=== PATIENT | female | born 1975 | race Caucasian/White ===

== ENCOUNTER → 2018-06-17 | Outpatient (CLI) | payer OTHER | LOC: LAB.R 19:21 | PROVIDERS: ATTEND Nurse Practitioner Obstetrics & Gynecology | DX: N89.8 Other specified noninflammatory disorders of vagina (principal); Z11.3 Encounter for screening for infections with a predominantly sexual mode of transmission | CPT/HCPCS: 87480; 87491; 87510; 87591; 87660 ==

== ENCOUNTER 2018-06-19 19:21 | Outpatient (CLI) | payer OTHER ==
[2018-06-23 13:51] LABS: HSV 1 IGG TYPE SPECIFIC AB 51.1 index; HSV 2 IGG TYPE SPECIFIC AB 2.26 index
== END 2018-06-19 19:22 | disposition home or self-care (01) ==
LOC: LAB.R 19:21
PROVIDERS: ATTEND Nurse Practitioner Obstetrics & Gynecology
DX: Z11.3 Encounter for screening for infections with a predominantly sexual mode of transmission (principal)
CPT/HCPCS: 36415; 81599; 86695; 86696; 87480; 87491; 87510; 87591; 87660

== ENCOUNTER 2018-12-25 13:09 | Outpatient (CLI) | payer BC ==
--- NOTE | 2018-12-25 15:58 | Ultrasound Report ---
Reason: MENORRHAGIA Procedure Date: 12/25/2018 Accession Number: [id number] / [id number] Procedure: US - Pelvic w/Transvaginal CPT Code: FULL RESULT: EXAM: PELVIC ULTRASOUND EXAM DATE: 12/25/2018 02:31 PM. CLINICAL HISTORY: MENORRHAGIA. COMPARISON: None. TECHNIQUE: Realtime transabdominal pelvic scan performed to identify the uterus and adnexa and as an overview of other pelvic structures, followed by transvaginal scan to provide greater detail of the uterus and adnexa, with static image documentation. FINDINGS: Uterus: 11.2 x 4.6 x 7.1 cm, volume 191 cc. Retroverted position. Normal overall size and echotexture. Masses: None. Endometrium: 11 mm. Normal. Cervix: Unremarkable. Right Ovary: 2.6 x 1.6 x 2.4 cm, volume 5.1 cc. Normal echotexture and blood flow. Left Ovary: 3.7 x 1.9 x 3.2 cm, volume 11.3 cc. Normal echotexture and blood flow. Free Fluid: None. Other: None. IMPRESSION: Normal pelvic ultrasound. RADIA
== END 2018-12-25 13:10 | disposition home or self-care (01) ==
LOC: DI 13:09
PROVIDERS: ATTEND Obstetrics & Gynecology
DX: N92.0 Excessive and frequent menstruation with regular cycle (principal)
CPT/HCPCS: 76830; 76856

== ENCOUNTER 2020-09-07 13:26 | Outpatient (CLI) | payer BC | END 2020-09-07 13:27 | disposition home or self-care (01) | LOC: LAB 13:26 | PROVIDERS: ATTEND Obstetrics & Gynecology | DX: Z53.9 Procedure and treatment not carried out, unspecified reason (principal) ==

== ENCOUNTER 2020-09-08 16:17 | Outpatient (CLI) | payer BC | END 2020-09-08 16:18 | disposition home or self-care (01) | LOC: LAB 16:17 | PROVIDERS: ATTEND Obstetrics & Gynecology | DX: Z01.812 Encounter for preprocedural laboratory examination (principal); N81.6 Rectocele; N81.10 Cystocele, unspecified; Z97.5 Presence of (intrauterine) contraceptive device; Z20.828 Contact with and (suspected) exposure to other viral communicable diseases ==

== ENCOUNTER 2020-09-11 15:42 | Outpatient (CLI) | payer BC ==
[2020-09-11 16:15] LABS: BASOPHILS % (AUTO) 0.4 %; EOSINOPHILS # (AUTO) 0.1 10^3/uL (0.0-0.7); EOSINOPHILS % (AUTO) 1.7 %; HGB - HEMOGLOBIN 12.7 g/dL (12.0-16.0); LYMPHOCYTES # (AUTO) 2.2 10^3/uL (1.5-3.5); LYMPHOCYTES % (AUTO) 31.4 %; MEAN CORPUSCULAR VOLUME 88.2 fL (81.0-99.0); MEAN PLATELET VOLUME 10.6 fL (7.9-10.8); MONOCYTES # (AUTO) 0.4 10^3/uL (0.0-1.0); MONOCYTES % (AUTO) 5.5 %; NEUTROPHILS # (AUTO) 4.3 10^3/uL (1.5-6.6); NEUTROPHILS % (AUTO) 60.7 %; PLT - PLATELET COUNT 175 10^3/uL (130-450); RED BLOOD COUNT 4.24 10^6/uL (4.20-5.40); RED CELL DISTRIBUTION WIDTH 12.7 % (12.0-15.0); WHITE BLOOD COUNT 7.1 x10^3/uL (4.8-10.8)
== END 2020-09-11 15:43 | disposition home or self-care (01) ==
LOC: LAB 15:42
PROVIDERS: ATTEND Obstetrics & Gynecology
DX: Z01.812 Encounter for preprocedural laboratory examination (principal); N81.10 Cystocele, unspecified; N81.6 Rectocele; Z97.5 Presence of (intrauterine) contraceptive device
CPT/HCPCS: 36415; 85025; 86850; 86900; 86901; 86920

== ENCOUNTER 2020-09-13 07:31 | Day surgery (SDC) | payer BC ==
[~2020-09-13 07:31] MED LIST: ACETAMINOPHEN 1,000 MG/100 ML 100 ML IV ONE; CEFAZOLIN SODIUM IN 0.9 % NACL 2 GM/100 ML BAG IV ONE; GABAPENTIN 400 MG CAPSULE ONE; PHENAZOPYRIDINE 100 MG TABLET PO ONE
[2020-09-13 07:45] LABS: HCG UR QUAL NEGATIVE
[2020-09-13] MEDS ORDERED: CELECOXIB 100 MG CAPSULE PO ONE (07:51)
[2020-09-13] MEDS ORDERED: LACTATED RINGERS 1,000 ML IV ONE ×3 (08:01→14:05)
[2020-09-13] MEDS ORDERED: MORPHINE 2 MG/ML CARPUJECT IVP PRN (08:18)
[2020-09-13] MEDS ORDERED: ONDANSETRON 4 MG/2 ML VIAL IVP PRN (08:18)
[2020-09-13] MEDS ORDERED: NALOXONE 0.4 MG/ML VIAL IVP PRN (08:18)
[2020-09-13] MEDS ORDERED: ePHEDrine 50 MG/ML VIAL IVP PRN (08:18)
[2020-09-13] MEDS ORDERED: fentaNYL 100 MCG/2 ML VIAL IVP PRN (08:18)
[2020-09-13] MEDS ORDERED: METOCLOPRAMIDE 10 MG/2 ML VIAL IVP PRN (08:18)
[2020-09-13] MEDS ORDERED: HYDROmorphone 0.5 MG/0.5 ML SYRINGE IVP PRN (08:18)
[2020-09-13] MEDS ORDERED: ATROPINE ABBOJECT 1 MG/10 ML SYRINGE IVP PRN (08:18)
--- NOTE | 2020-09-13 08:22 | ANESTHESIA ---
Pre-Anesthesia VS, & Labs - Diagnosis cystocele/rectocele, - Procedure Anterior Posterior Repair, Colporrhapy, IUD removal and replacement Vital Signs: Temp Pulse Resp BP Pulse Ox 36.3 C L 78 16 134/70 H 99 09/13/20 07:47 09/13/20 07:47 09/13/20 07:47 09/13/20 07:47 09/13/20 07:47 Height: 5 ft 9 in Weight (kg): 93.9 kg Body Mass Index: 30.5 BMI Classification: Obese - NPO >8 hours - Is Patient ?: No - Lab Results Current Lab Results: Laboratory Tests 09/13/20 07:58: POC Whole Bld Glucose 90 Lab results reviewed: Yes Home Medications and Allergies Home Medications: Ambulatory Orders Doxycycline Monohydrate [Oracea] 20 mg PO DAILY 09/05/20 Phentermine HCl [Adipex-P] 37.5 mg PO DAILY 09/05/20 Valacyclovir HCl [Valtrex] 500 mg PO DAILY PRN 09/05/20 Docusate Sodium 250Mg Capsule [Colace 250Mg Capsule] 1 DAILY 09/13/20 Active Medications Atropine Sulfate (Atropine Abboject 1 Mg/10 Ml Syringe) 0.5 mg IVP Q5M PRN PRN Reason: Bradycardia Stop: 09/14/20 08:18 Ephedrine Sulfate (Ephedrine 50 Mg/Ml Vial) 10 mg IVP Q5M PRN PRN Reason: HYPOTENSION Stop: 09/14/20 08:18 Fentanyl (Fentanyl 100 Mcg/2 Ml Vial) 25 - 50 mcg IVP Q5M PRN PRN Reason: BREAKTHROUGH PAIN (2nd Choice) Stop: 09/14/20 08:18 Hydromorphone HCl (Hydromorphone 0.5 Mg/0.5 Ml Syringe) 0.2 - 0.6 mg IVP Q5M PRN PRN Reason: PAIN (First Choice) Stop: 09/14/20 08:18 Lactated Ringer's (Lr) 1,000 mls @ 100 mls/hr IV .Q10H GEORGINA Stop: 09/13/20 18:59 Metoclopramide HCl (Metoclopramide 10 Mg/2 Ml Vial) 10 mg IVP Q6HR PRN PRN Reason: N/V not relieved by Zofran Morphine Sulfate (Morphine 2 Mg/Ml Carpuject) 2 - 4 mg IVP Q5M PRN PRN Reason: PAIN (3rd Choice) Stop: 09/14/20 08:18 Naloxone HCl (Naloxone 0.4 Mg/Ml Vial) 0.1 mg IVP Q2M PRN PRN Reason: RESP RATE <8 Stop: 09/14/20 08:18 Ondansetron HCl (Ondansetron 4 Mg/2 Ml Vial) 4 mg IVP ONCE PRN PRN Reason: N/V (First Choice) Stop: 09/14/20 08:18 Doxycycline Monohydrate [Oracea] 20 mg PO DAILY 09/05/20 Phentermine HCl [Adipex-P] 37.5 mg PO DAILY 09/05/20 Valacyclovir HCl [Valtrex] 500 mg PO DAILY PRN 09/05/20 Docusate Sodium 250Mg Capsule [Colace 250Mg Capsule] 1 DAILY 09/13/20 Allergies/Adverse Reactions: Allergies Allergy/AdvReac Type Severity Reaction Status Date / Time No Known Drug Allergies Allergy Verified 09/05/20 13:07 Anes History & Medical History - Anesthetic History Anesthesia Complications: reports: No previous complications Family history of Anesthesia Complications: Denies Family history of Malignant Hyperthermia: Denies - Medical History Cardiovascular: reports: None Pulmonary: reports: None, Sleep apnea (possible, being worked up now) Gastrointestinal: reports: None Urinary: reports: None Musculoskeletal: reports: None Endocrine/Autoimmune: reports: None Skin: reports: Rosacea - Surgical History Eyes Ears Nose Throat (EENT): Tonsil/Adenoidectomy Exam General: Alert, Oriented x3, Cooperative, No acute distress Dental: WNL Mouth Openin Fingerbreadth Neck Mobility: Normal Mallampati classification: I Respiratory: Lungs clear, Normal breath sounds, No respiratory distress, No accessory muscle use Cardiovascular: Regular rate, Normal S1, Normal S2, No murmurs Plan Anesthesia Type: General Consent for Procedure(s) Verified and Reviewed: Yes Code Status: Attempt Resuscitation ASA classification: 2-Mild systemic disease Is this case an emergency?: No
[2020-09-13] MEDS ORDERED: LACTATED RINGERS 1,000 ML IV SCH (09:00)
[2020-09-13] MEDS ORDERED: SCOPOLAMINE PATCH TOP SCH (09:00)
[2020-09-13] MEDS ORDERED: BUPIVACAINE 0.5%-EPI 1:200000 PF 30 ML VIAL ONE (09:45)
[2020-09-13] MEDS ORDERED: LEVONORGESTREL 20 MCG/24H IUD IY ONE ×2 (10:05→13:19)
[2020-09-13] MEDS ORDERED: PROPOFOL 200 MG/20 ML VIAL IVP ONE ×2 (10:20→14:58)
[2020-09-13] MEDS ORDERED: ONDANSETRON 4 MG/2 ML VIAL IVP ONE (10:20)
[2020-09-13] MEDS ORDERED: fentaNYL 100 MCG/2 ML VIAL IVP ONE (10:20)
[2020-09-13] MEDS ORDERED: DEXAMETHASONE 4 MG/ML VIAL IVP ONE (10:20)
[2020-09-13] MEDS ORDERED: HYDROmorphone 1 MG/ML CARPUJECT IVP ONE (10:20)
[2020-09-13] MEDS ORDERED: MIDAZOLAM 2 MG/2 ML VIAL IVP ONE (10:20)
[2020-09-13] MEDS ORDERED: ACETAMINOPHEN 1,000 MG/100 ML 100 ML IV ONE (10:20)
[2020-09-13] MEDS ORDERED: LIDOCAINE-MPF 2% 5 ML VIAL IM ONE (10:20)
[2020-09-13] MEDS ORDERED: ESTROGENS, CONJUGATED CREAM 30 GM TUBE ONE (10:43)
[2020-09-13] MEDS ORDERED: VASOPRESSIN 20 UNIT/ML VIAL ONE ×2 (10:54→15:02)
[2020-09-13] MEDS ORDERED: LIDOCAINE 2% URO-JET 5 ML SYRINGE UR ONE ×2 (12:03→12:07)
[2020-09-13] MEDS ORDERED: HYDROmorphone 1 MG/ML CARPUJECT IVP PRN ×2 (13:45→13:48)
[2020-09-13] MEDS ORDERED: SIMETHICONE CHEW 80 MG TABLET PO PRN (13:48)
[2020-09-13] MEDS ORDERED: ONDANSETRON ODT 4 MG TABLET TL PRN (13:48)
[2020-09-13] MEDS ORDERED: oxyCODONE 5 MG TABLET PO PRN (13:48)
[2020-09-13] MEDS ORDERED: SCOPOLAMINE PATCH TOP PRN (13:48)
--- NOTE | 2020-09-13 13:53 | OPERATIVE REPORT ---
Operative Report - General Procedure Date: 09/13/20 Planned Procedure: Anterior and posterior repair with perineorraphy Removal of Paragard IUD Insertion of Mirena IUD Cystoscopy Pre-Op Diagnosis: Pelvic organ prolapse and desires contraception Procedure Performed: Anterior and posterior repair with perineorraphy Removal of Paragard IUD Insertion of Mirena IUD Cystoscopy Post Op Diagnosis: Same - Procedure Note Primary Surgeon: Marita Dukes MD Secondary Surgeon: Eulalia Doe MD Anesthesia Provider: Eulalia Smith CRNA Anesthesia Technique: General ET tube Pathology: None. Excess tissue for routine discard IV Fluids (mL): 1,600 (see anesthesia record) Estimated Blood Loss (mL): 200 (Patient had postop bleeding with additional EBL of 350 cc. ) Urine Output (mL): 600 Indications: Patient was last seen in clinic on 06/26/2020. She had been assessed on two prior occasions for her pelvic organ prolapse. At that time, she was diagnosed with cystocele and rectocele as well as uterine descensus. She does not feel like she is ready to undergo hysterectomy as she feels that she may consider childbearing in the future. She is aware that her age makes this a lower probability event; however, she is not ready to part with her uterus at this time. For this reason, she wants to proceed with an anterior and posterior repair. She would also like her ParaGard IUD removed and Mirena IUD placed. She has been on phentermine since the last time she was seen. She has lost 10 pounds since her prior visit. She has reported that she has a bulge in the vagina most often after bowel movements. She also has fecal urgency, but no incontinence. She reports that she can have incontinence if she ignores the urgency. She has had 5 vaginal deliveries. Her largest infant was 10.5 pounds. Her last Pap smears was in 2019 and was in normal limits. She has a ParaGard in place. She continues to have monthly menses. She has tried pelvic floor physical therapy in the past with poor response. She is not interested in a pessary. Findings: Marked pelvic laxity with gaping introitus. Cystocele and rectocele with Stage II uterine descensus. IUD strings were in place. Uterus sounded to 7 cm. Postoperative cystoscopy showed bilateral ureteral jets an not injury to the bladder. Rectal exam showed no suture or injury to the rectum. Complications: None ADDENDUM: POST OP BLEED Patient returned to OR for control of bleeding. - Other Other Information/Narrative: Consent was again confirmed. The patient was brought to the OR and underweight general anesthesia. She was placed in dorsal lithotomy with legs supported in yellowfin stirrups. Bimanual exam was performed. She was then prepared and draped in the usual sterile fashion. Johnson catheter was in place and backfilled with 50 cc of dilute methylene blue and clamped. SCDs were confirmed to be in place and operating. A surgical time out was performed. Administration of 2g IV cefazolin was confirmed. A sterile speculum was placed and cervix was visualized. A total of 20 cc of 0.5% bupivicaine with epinephrine was injected at 4:00 and 8:00 lateral to the portio of the cervix for a paracervical block. The IUD strings were readily visualized. They were grasped with ring forceps and the IUD was removed without difficulty. It was examined and found ot be intact. A double toothed tenaculum was placed at the anterior cerivcal lip. An Allis clamp was placed about 1 cm above the cervicovaginal margin. Dilute vasopressin was injected under the vaginal mucosa of the anterior vaginal wall to about 1 cm below the urethral meatus. In the space, an incision was made from the anterior aspect of the cervix (about 1 cm about the cervicovaginal margin, and continued until the vagina is opened to within 1 cm of the urethral meatus. The edges of the mucosa were grasped bilaterally with wide Allis clamps and held in the lateral position. The pubovesical cervical fascia was from the vaginal mucosa in a combination of sharp and blunt dissection. A series of #2-0 Vicryl interrupted sutures were then placed sequentially along the lateral folds of the vesicovaginal space, plicating the pubovesical fascia, together to tuck the bladder back while simultaneously bringing the lateral vaginal tissues together. The excess vaginal mucosa was then trimmed. The mucosa of the anterior vagina was then closed with a running locked #2 Vicryl suture. Aliis clamps were used to grasp the hymenal ring bilaterally. Dilute vasopressin solution was infiltrated under the posterior vaginal mucosa midline and into the perineal body. A transverse incision at the hymenal ring, forming the base of and inverted triangular incision in the perineum with the apex above the anus, exposing the aponeurosis of the bulbocavernosis muscles. Metzenbaum scissors is inserted under the posterior vaginal mucosa, dissecting the posterior mucosa off the rectovaginal fascia. The posterior vaginal wall was then opened vertically and midline up to the apex of the rectocele. The cut edges were held and splayed laterally with a series of Allis clamps. The open vaginal mucosa was then dissected laterally with a combination of sharp and blunt dissection, exposing the perirectal fascia. The perirectal fascia was then plicated with interrupted #2-0 Vicryl sutures to draw the lateral folds together and tuck the rectocele back. The excess vaginal mucosa was trimmed. The posterior vaginal wall was closed with a running locked 2-0 Vicryl to the hymenal tags. The perineal body was reinforced with a crown suture using running unlocked 2-0 Vicryl and the perineal skin was closed with running subcuticular #2-0 Vicryl. Good hemostasis was noted. Rectal exam was performed and the rectal vault was absent of penetrating suture. Good hemostasis was noted. The vaginal vault was cleared of debris. A speculum was placed and the cervix was visualized. A tenaculum was placed on the anterior cervical lip. The uterus sounded to 7 cm. The Mirena IUD was inserted according to package directions. Strings were trimmed to 3 cm. All i ntruments were removed from the vagina. The sponge count was correct times 2 at this time. A Johnson catheter was then unclamped. The bladder was drained and the Johnson was removed. The cystoscope was inserted and the bladder was distended with normal saline. The survey of all of the bladder surfaces was completed and was noted to be absent of suture or trauma. Ureteral jets were observed directly bilaterally. Bladder was drained and cystoscope was removed. Johnson catheter was replaced. All instruments were removed from the vagina and good hemostasis was noted. Vaginal packing soaked with estrogen cream was placed in the vaginal vault. Sponge and needle counts were confirmed to be correct. Procedure was closed with a post-operative time out, patient extubated, and brought to the PACU in good condition. Dr. Santos assisted with retraction, assistance with suturing, cystoscopy, and sharing of surgical insight.
[2020-09-13] MEDS ORDERED: TRANEXAMIC ACID 1,000 MG/10 ML VIAL IV ONE (14:58)
[2020-09-13] MEDS ORDERED: LACTATED RINGERS 500 ML IV ONE (15:41)
[2020-09-13 16:01] LABS: HGB - HEMOGLOBIN 10.1 g/dL (12.0-16.0)
[2020-09-13] MEDS: LACTATED RINGERS 1,000 ML IV SCH ×2 (16:28→21:53)
[2020-09-13] MEDS: KETOROLAC 30 MG/ML VIAL IVP SCH ×3 (16:31→23:39)
[2020-09-13] MEDS: ACETAMINOPHEN 500 MG TABLET PO SCH ×2 (16:31→21:53)
--- NOTE | 2020-09-13 17:09 | ANESTHESIA POST OP EVALUATION ---
Anesthesia Post Eval - Post Anesthesia Eval Vitals: Last Vital Signs Temp 36.6 C 09/13/20 16:10 Pulse 87 09/13/20 16:30 Resp 18 09/13/20 16:30 BP 118/62 09/13/20 16:30 Pulse Ox 99 09/13/20 16:30 CV Function Including HR & BP: positive: Stable Pain Control: positive: Satisfactory Nausea & Vomiting: positive: Negative Mental Status: positive: Baseline Respiratory Status: Airway Patent, Other Anesthesia Complications: positive: None
--- NOTE | 2020-09-13 19:18 | PROVIDER PROGRESS NOTE ---
Subjective - Prog Note Date Prog Note Date: 09/13/20 Prog Note Time: 18:30 - Subjective Subjective: Patient reports feeling dizzy and lightheaded when sitting up. Blood pressures were low at that time. Documented at 91/36. Repeat BPs were in 120s/60s. Patient had soiled pads but had not soaked pads as she had prior to the procedure. Observing pads over the the last 30 minutes indicate slowed if not inactive bleeding. UOP has been excellent; 125 cc over 90 minutes. Patient is feeling pelvic pressure/heaviness but is not in active pain. Objective - Vital Signs/Intake & Output Vital Signs: Vital Signs x48h Temp Pulse Pulse Resp BP BP Pulse Ox 09/13/20 18:51 97.8 F 80 18 101/49 L 97 09/13/20 18:16 81 20 124/54 L 98 09/13/20 18:06 207.1 F H 86 18 123/64 100 09/13/20 18:00 64 16 91/36 L 95 09/13/20 17:08 98.5 F 83 18 108/63 95 09/13/20 16:30 87 18 118/62 99 09/13/20 16:10 97.9 F 92 14 112/82 H 99 09/13/20 16:04 98.1 F 87 14 112/70 96 09/13/20 16:00 97.9 F 87 14 112/82 H 99 09/13/20 15:55 97.9 F 86 12 106/67 98 09/13/20 15:50 98.1 F 86 12 110/66 100 09/13/20 15:45 98.1 F 85 10 L 126/77 100 09/13/20 15:38 98.2 F 88 12 116/71 100 09/13/20 14:54 98.1 F 96 16 121/67 99 09/13/20 14:50 98.2 F 86 16 119/71 99 09/13/20 14:40 98.2 F 91 16 119/71 100 09/13/20 14:30 98.2 F 90 16 119/74 99 09/13/20 14:20 98.6 F 84 16 132/72 H 100 09/13/20 14:15 98.6 F 106 H 14 132/72 H 100 09/13/20 14:05 97.7 F 91 12 123/74 100 09/13/20 14:00 98.1 F 94 12 117/68 100 09/13/20 13:55 98.1 F 83 14 109/65 100 09/13/20 13:50 98.1 F 88 12 123/70 100 09/13/20 13:45 98.2 F 94 16 114/61 99 09/13/20 13:40 98.2 F 101 H 16 114/63 100 Intake & Output: Intake & Output 09/10/20 09/11/20 09/12/20 09/13/20 23:59 23:59 23:59 23:59 Intake Total 450 Output Total 925 Balance -475 - Objective General Appearance: positive: No acute distress Respiratory: positive: No respiratory distress Cardiovascular: positive: Other (RR) Abdomen: positive: Non-tender, No distention Skin: positive: Color nml Extremities: positive: Non-tender, No pedal edema Neurologic/Psychiatric: positive: Oriented x3 - Lab Results Fish Bones: 09/13/20 18:04 Other Labs: Lab Results x24hrs 09/13/20 09/13/20 09/13/20 Range/Units 18:04 15:47 07:58 Hgb 10.0 L 10.1 L (12.0-16.0) g/dL Hct 30.4 L 31.4 L (37.0-47.0) % POC Whole Bld Glucose 90 (70 - 100) mg/dL Urine HCG, Qual 09/13/20 Range/Units 07:35 Hgb (12.0-16.0) g/dL Hct (37.0-47.0) % POC Whole Bld Glucose (70 - 100) mg/dL Urine HCG, Qual NEGATIVE - Other Results/Comments Other Results/Comments: Pad with some staining but not saoking and no change in blood flow over 30 minutes of observation Assessment/Plan - Problem List (1) Post-op bleeding Impression: Appears stable at present HCT with minimal exchange floor manager 4 hours Will check HCT again at 22:00 Will continue to observe pads over the next hour. Currently stable. Will continue to monitor.
[2020-09-13] MEDS: oxyCODONE 5 MG TABLET PO PRN ×2 (19:28→23:39)
--- NOTE | 2020-09-13 19:34 | OPERATIVE REPORT ---
Operative Report - General Procedure Date: 09/13/20 Planned Procedure: Examination under anesthesia Possible revision of anterior/posterior repair Pre-Op Diagnosis: Post op bleeding Procedure Performed: Examination under anesthesia Reinforcement of posterior repair Post Op Diagnosis: Same - Procedure Note Primary Surgeon: Marita Dukes MD Secondary Surgeon: Connie Doe MD Anesthesia Provider: Rossy Beck CRNA Anesthesia Technique: General LMA Pathology: None IV Fluids (mL): 200 Estimated Blood Loss (mL): 350 (Included soaked packing. About 50 cc EBL intraop) Indications: Patient is a 45 yo female that had undergone and anterior and posterior repair earlier in the afternoon. In the PACU, she had greater than expected bleeding and soaked through her vaginal packing and a peripad. Packing was removed and replaced with a double length of packing. She soaked through this packing as well. The decision was made to return to the OR for exam under anesthesia and possible revision of anterior/posterior repair. Findings: Anterior repair was CDI. Distal 1/3 of posterior vagina had bleeding immediately proximal to the hymenal ring. Complications: Postop bleeding. No intraoperative complications - Other Other Information/Narrative: Patient was brought back to the OR and underwent general anesthesia with LMA. She received and additional dose of cefazolin [address] She was place din dorsal lithotomy position with legs resting in stirrups. She was prepped and draped in the usual sterile fashion. Packing was removed. Vaginal vaults was irrigated with dilute chlorhexadine. Careful survey of the anterior vagina showed no active bleeding. Careful exploration of the posterior vaginal wall showed active bleeding at the outer 1/4 of the vagina. A series of figure of 8 sutures were placed to control bleeding. A rectal exam was performed with an over glove both to ensure that no suture was in the rectum and to assess for hematoma. No hematoma was noted and no additional bleeding was noted. The rectal vualt was devoid of suture. Pressure was then systematically placed along the length of the posterior vaginal vault using the wide side of the pickup to put pressure on the vaginal floor. No other gushes of blood could be induced. Patient was observed without intervention and no further blood loss was noted. Patient was given tranexamic acid IV to limit any additional postoperative bleeding. Vaginal packing soaked in estrogen was placed within the vaginal vault. Excellent hemostasis was noted. Dr. Doe assisted with retraction and surgical insight. Procedure was well tolerated and without complication.
[2020-09-13] MEDS: DOCUSATE SODIUM 100 MG CAPSULE PO SCH (20:23)
[2020-09-13] MEDS: BENZOCAINE/MENTHOL LOZENGE MM PRN (22:02)
[2020-09-13 22:09] LABS: BASOPHILS % (AUTO) 0.1 %; HGB - HEMOGLOBIN 8.6 g/dL (12.0-16.0); LYMPHOCYTES # (AUTO) 1.2 10^3/uL (1.5-3.5); LYMPHOCYTES % (AUTO) 13.5 %; MEAN CORPUSCULAR HEMOGLOBIN 30.2 pg (27.0-31.0); MEAN CORPUSCULAR HGB CONC 33.1 g/dL (32.0-36.0); MEAN CORPUSCULAR VOLUME 91.2 fL (81.0-99.0); MEAN PLATELET VOLUME 10.4 fL (7.9-10.8); MONOCYTES # (AUTO) 0.6 10^3/uL (0.0-1.0); MONOCYTES % (AUTO) 6.6 %; NEUTROPHILS # (AUTO) 7.1 10^3/uL (1.5-6.6); NEUTROPHILS % (AUTO) 79.4 %; PLT - PLATELET COUNT 147 10^3/uL (130-450); RED BLOOD COUNT 2.85 10^6/uL (4.20-5.40); RED CELL DISTRIBUTION WIDTH 12.6 % (12.0-15.0); WHITE BLOOD COUNT 8.9 x10^3/uL (4.8-10.8)
[2020-09-13] MEDS: PHENAZOPYRIDINE 100 MG TABLET PO SCH (23:39)
[2020-09-14] MEDS: oxyCODONE 5 MG TABLET PO PRN ×2 (04:41→08:45)
[2020-09-14] MEDS: BENZOCAINE/MENTHOL LOZENGE MM PRN (04:46)
[2020-09-14 04:55] LABS: BASOPHILS % (AUTO) 0.5 %; EOSINOPHILS % (AUTO) 0.5 %; HGB - HEMOGLOBIN 7.8 g/dL (12.0-16.0); LYMPHOCYTES # (AUTO) 1.9 10^3/uL (1.5-3.5); MEAN CORPUSCULAR HEMOGLOBIN 29.5 pg (27.0-31.0); MEAN CORPUSCULAR HGB CONC 32.2 g/dL (32.0-36.0); MEAN CORPUSCULAR VOLUME 91.7 fL (81.0-99.0); MEAN PLATELET VOLUME 10.6 fL (7.9-10.8); MONOCYTES # (AUTO) 0.7 10^3/uL (0.0-1.0); MONOCYTES % (AUTO) 9.2 %; NEUTROPHILS # (AUTO) 4.8 10^3/uL (1.5-6.6); NEUTROPHILS % (AUTO) 64.4 %; PLT - PLATELET COUNT 140 10^3/uL (130-450); RED BLOOD COUNT 2.64 10^6/uL (4.20-5.40); RED CELL DISTRIBUTION WIDTH 12.8 % (12.0-15.0); WHITE BLOOD COUNT 7.5 x10^3/uL (4.8-10.8)
[2020-09-14] MEDS: KETOROLAC 30 MG/ML VIAL IVP SCH ×2 (06:05→11:20)
[2020-09-14] MEDS: ACETAMINOPHEN 500 MG TABLET PO SCH ×2 (06:06→13:11)
[2020-09-14] MEDS: PHENAZOPYRIDINE 100 MG TABLET PO SCH (06:26)
[2020-09-14] MEDS: LACTATED RINGERS 1,000 ML IV SCH (08:45)
[2020-09-14] MEDS: DOCUSATE SODIUM 100 MG CAPSULE PO SCH (08:45)
--- NOTE | 2020-09-14 09:55 | PROVIDER PROGRESS NOTE ---
Subjective - Prog Note Date Prog Note Date: 09/14/20 Prog Note Time: 09:53 - Subjective Subjective: Has been up and ambulating. Tolerating po. Pain well managed. Johnson in place. Vaginal packing removed during exam. No dizziness, lightheadedness, SOB , or CP. Objective - Vital Signs/Intake & Output Vital Signs: Vital Signs x48h Temp Pulse Pulse Resp BP BP Pulse Ox 09/14/20 08:00 99.9 F 72 16 111/63 97 09/14/20 04:41 72 110/54 L 09/14/20 03:39 106/49 L 09/14/20 03:21 98.8 F 75 18 92/44 L 98 Intake & Output: Intake & Output 09/11/20 09/12/20 09/13/20 09/14/20 23:59 23:59 23:59 23:59 Intake Total 2641.667 1360 Output Total 925 3200 Balance 1716.667 -1840 - Objective General Appearance: positive: No acute distress Respiratory: positive: No respiratory distress Cardiovascular: positive: Other (RR) Abdomen: positive: Non-tender, Other (Soft and non-tender. ND) Skin: positive: Color nml Neurologic/Psychiatric: positive: Oriented x3 - Lab Results Fish Bones: 09/14/20 04:45 Other Labs: Lab Results x24hrs 09/14/20 09/13/20 09/13/20 Range/Units 04:45 22:00 18:04 WBC 7.5 8.9 (4.8-10.8) x10^3/uL RBC 2.64 L 2.85 L (4.20-5.40) 10^6/uL Hgb 7.8 L 8.6 L 10.0 L (12.0-16.0) g/dL Hct 24.2 L 26.0 L 30.4 L (37.0-47.0) % MCV 91.7 91.2 (81.0-99.0) fL MCH 29.5 30.2 (27.0-31.0) pg MCHC 32.2 33.1 (32.0-36.0) g/dL RDW 12.8 12.6 (12.0-15.0) % Plt Count 140 147 (130-450) 10^3/uL MPV 10.6 10.4 (7.9-10.8) fL Neut # (Auto) 4.8 7.1 H (1.5-6.6) 10^3/uL Lymph # (Auto) 1.9 1.2 L (1.5-3.5) 10^3/uL [place] # (Auto) 0.7 0.6 (0.0-1.0) 10^3/uL Eos # (Auto) 0.0 0.0 (0.0-0.7) 10^3/uL Baso # (Auto) 0.0 0.0 (0.0-0.1) 10^3/uL Absolute Nucleated RBC 0.00 0.00 x10^3/uL Nucleated RBC % 0.0 0.0 /100WBC 09/13/20 Range/Units 15:47 WBC (4.8-10.8) x10^3/uL RBC (4.20-5.40) 10^6/uL Hgb 10.1 L (12.0-16.0) g/dL Hct 31.4 L (37.0-47.0) % MCV (81.0-99.0) fL MCH (27.0-31.0) pg MCHC (32.0-36.0) g/dL RDW (12.0-15.0) % Plt Count (130-450) 10^3/uL MPV (7.9-10.8) fL Neut # (Auto) (1.5-6.6) 10^3/uL Lymph # (Auto) (1.5-3.5) 10^3/uL [place] # (Auto) (0.0-1.0) 10^3/uL Eos # (Auto) (0.0-0.7) 10^3/uL Baso # (Auto) (0.0-0.1) 10^3/uL Absolute Nucleated RBC x10^3/uL Nucleated RBC % /100WBC - Other Results/Comments Other Results/Comments: Vaginal packing removed. Upper part of packing without saturation. Observing for additional bleeding. Assessment/Plan - Problem List (1) Post-op bleeding Impression: POD#1 s/p A/P repair with post op bleeding VSS UOP has been excellent Johnson and vag packing removed. Getting IV iron this am. In the absence of bleeding and if able to void with < 50% PVR, then can go home.
[2020-09-14] MEDS ORDERED: polyethylene glycoL 3350 17 GM PACKET PO SCH (10:00)
[2020-09-14] MEDS ORDERED: IRON DEXTRAN 1,000 MG in SODIUM CHLORIDE 0.9% 250 ML IV ONE (10:30)
[2020-09-14 13:13] VITALS: BP 116/64
== END 2020-09-14 13:20 | disposition home or self-care (01) ==
LOC: SDS 07:31 → MS3 14:28 → MS2 16:21 → SDS 09-14 13:20
PROVIDERS: ATTEND Obstetrics & Gynecology
DX: N81.2 Incomplete uterovaginal prolapse (principal); Z30.433 Encounter for removal and reinsertion of intrauterine contraceptive device; N99.820 Postprocedural hemorrhage of a genitourinary system organ or structure following a genitourinary system procedure; E66.9 Obesity, unspecified; Z68.30 Body mass index [BMI] 30.0-30.9, adult
CPT/HCPCS: 36415; 57200; 57260; 58300; 81025; 85014; 85018; 85025; A9270; J0131; J0690; J1170; J1750; J3490; J7120; J7298; 86850; 86900; 86901; 86920

== ENCOUNTER 2020-09-18 18:00 | Outpatient (CLI) | payer BC ==
[2020-09-18 18:19] LABS: MEAN CORPUSCULAR HEMOGLOBIN 30.5 pg (27.0-31.0); MEAN CORPUSCULAR HGB CONC 32.9 g/dL (32.0-36.0); MEAN CORPUSCULAR VOLUME 92.7 fL (81.0-99.0); MEAN PLATELET VOLUME 9.7 fL (7.9-10.8); RED BLOOD COUNT 3.28 10^6/uL (4.20-5.40); WHITE BLOOD COUNT 10.1 x10^3/uL (4.8-10.8)
== END 2020-09-18 18:01 | disposition home or self-care (01) ==
LOC: LAB 18:00
PROVIDERS: ATTEND Internal Medicine
DX: R58 Hemorrhage, not elsewhere classified (principal)
CPT/HCPCS: 36415; 85027; 86850; 86900; 86901

== ENCOUNTER 2022-01-24 08:00 | Outpatient (CLI) | payer BC ==
[2022-01-24 17:34] LABS: ALBUMIN 4.3 g/dL (3.2-5.5); ALKALINE PHOSPHATASE 44 IU/L (42-121); ALT ALANINE AMINOTRANSFERASE 12 IU/L (10-60); AST ASPARTATE AMINOTRANSFERASE 16 IU/L (10-42); BILIRUBIN,DIRECT 0.1 mg/dL (0.1-0.5); BILIRUBIN,TOTAL 0.7 mg/dL (0.2-1.0); TOTAL PROTEIN 6.9 g/dL (6.7-8.2); URIC ACID 3.4 mg/dL (2.6-7.2)
[2022-01-24 17:44] LABS: CRP - C-REACTIVE PROTEIN < 1.0 mg/dL (0-1.0)
[2022-01-24 17:49] LABS: RHEUMATOID FACTOR NEGATIVE (Negative)
[2022-01-28 13:36] LABS: ANA SCREEN NEGATIVE (NEGATIVE)
== END 2022-01-24 23:59 | disposition home or self-care (01) ==
LOC: LAB.R 08:00
PROVIDERS: ATTEND Internal Medicine
DX: M25.50 Pain in unspecified joint (principal); R53.83 Other fatigue; G47.33 Obstructive sleep apnea (adult) (pediatric); R63.5 Abnormal weight gain
CPT/HCPCS: 80076; 84443; 84550; 85651; 86038; 86140; 86200; 86430

== ENCOUNTER 2022-07-17 08:51 | Outpatient (CLI) | payer BC ==
[2022-07-17 09:31] VITALS: BP 140/80
--- NOTE | 2022-07-17 09:31 | SLEEP CARE CONSULTATION ---
Information from patient questionnaire entered by Cecilia Zelaya. I have reviewed and concur with the information entered by Cecilia Zelaya. This document represents the service I personally performed and the decisions made by me, Paige Sauer ARNP. History of Present Illness Service Date and Time: 07/17/2022 0851 Reason for Visit: New patient Chief Complaint: reports: Insomnia, Unrefreshed sleep, Snoring, Excessive daytime sleepiness, Fatigue, Frequent awakenings at night, Other (ALWAYS TIRED) Date of Onset: POSSIBLY 10 YEARS Usual bedtime: 11-1AM Time it takes to fall asleep: <30 MINUTES Snores at night: Yes Observed to quit breathing while asleep: No Sleeps alone due to snoring: No (N/A) Number of times waking at night: 2-5 Reasons for waking at night: reports: Bathroom, Other (NOISE, CHILD, PET, UNKNOWN REASON ). denies: Choking, Snoring, Gasping for air Toss, Turn, or Twitch while sleeping: Yes Recalls having dreams: Yes (RARELY) Usually gets out of bed at: 8-9AM Feels refreshed in the morning: No (never) Morning headache: Yes (SOMETIMES (3 x week), RESOLVES BY MID MORNING OR IBUPROFEN IN MORNING ) Sleepy or fatigued during the day: Yes Ever fallen asleep while driving: No Takes day naps: Yes (SOMETIMES; 2 times a week, 20-30 mins) Dreams during day naps: No (RARELY) Prior sleep studies: No Additional HPI information: I had the pleasure of seeing ELIAZAR DAVALOS today regarding the possibility of her having a sleep disorder. Her current complaints are unrefreshed sleep, insomnia, excessive daytime sleepiness, snoring, fatigue and frequent night awakenings. She had a recommendation by her dentist to see if she has sleep apnea. She is always tired but they have not ever found a cause. She states she can fall asleep quickly but sometimes she will wake up about 3 AM. She will be up for a couple hours before able to go back to sleep. Sometimes she can go back to sleep sooner. She will get up for the day about 8-9 AM. She is tired throughout the day and will occasionally take naps. She does not like napping because she will feel "groggy" and is unmotivated to do things for the rest of the day. She has been told by her children that she snores. - Parasomnia Symptoms Ever been unable to move upon waking from sleep: No Walks in sleep: No Talks in sleep: No Ever acted out dreams in sleep: No Ever felt weak in the knees when startled or emotional: No Bothered by creepy, crawly, restless sensations in legs: No Problems with memory or concentration: Yes (feels "foggy, hazy") Subjective Initial Pinnacle Sleepiness Scale score: 8 (07/10/22) Past Medical History Past Medical History: reports: Arthritis (SIGNS/SYMPTOMS), Depression, GERD (UNDIAGNOSED) Social History The patient's occupation is a RN. Patient is Single and lives in [place]. Have you smoked in the past 12 months: No Alcohol use: Yes Alcohol amount and frequency: 1-2 DRINKS, 1-2 TIMES A WEEK Caffeine amount and frequency: 3-4 DAILY Family History Family history of sleep disordered breathing: No Allergies and Home Medications Known drug allergies: No Drug allergies reviewed: Yes (NKDA) Home medication list reviewed: Yes Allergy and home medication list: Allergies No Known Drug Allergies Allergy (Verified 09/05/20 13:07) Medications: Wellbutrin Doxycycline (acne) Nsaids, prn Review of Systems Weight loss over past 5 years: 20 Cardiovascular: reports: palpitations (OCCASSIONALLY ). denies: high blood pressure Respiratory: reports: chronic cough Neurological: reports: headaches. denies: head trauma Ear/Nose/Throat: reports: tonsillectomy, wisdom teeth removed. denies: sinus problems, injury to nose Musculoskeletal: reports: joint pain Immunologic: denies: allergies to food or environment Physical Exam Vital signs obtained and entered by: LUISA HARRIS Blood Pressure: 140/80 (left arm ) Cuff size: regular Heart Rate: 79 O2 Saturation: 99 Height: 5 ft 9 in Weight: 199 lb Body Mass Index: 29.3 BMI Classification: Overweight Neck circumference: 14.5 (inches ) Mouth and throat: narrow oropharynx Soft palate: long Hard palate: normal Uvula: normal Uvula visualization: 25% Mallampati Class III Tongue: enlarged in size with teeth carmichael on lateral edges Tonsils: absent bilaterally Neck: normal w/o lymphadenopathy or thyromegaly Heart: regular rate and rhythm Lungs: clear bilaterally Impression and Plan 1. Suspected Obstructive Sleep Apnea-Hypopnea Syndrome, as suggested by a history of loud and irregular snoring, morning headache, frequent awakening during the night, unrefreshed sleep, cognitive impairment, and excessive daytime sleepiness. Narrow oropharynx and obesity are common predisposing factors for obstructive sleep apnea-hypopnea syndrome. I recommend proceeding to polysomnography to confirm the diagnosis and to assess severity. If the patient has significant sleep disordered breathing, a manual CPAP titration study will also be performed to find the optimal treatment pressure. I informed the patient of what the sleep studies involve and after some discussion, obtained agreement to proceed. The pathophysiology of obstructive sleep apnea-hypopnea syndrome was discussed with the patient and health risks of cardiovascular and cerebrovascular disease if not treated. Risks of drowsy driving discussed in detail and patient advised to avoid long distance driving and to roll over loader at the first sign of drowsiness. Patient agreed to plan. * Schedule polysomnography * Avoid long distance driving or driving when feeling sleepy. * Avoid alcohol, sedative and muscle relaxant around bedtime. * Attempt to lose weight. * Review instructions provided by trained office staff on how to prepare for the sleep study. * Return for follow-up after sleep study completed. Counseling Topics: Weight loss health impact Visit Type: In Office Time Spent with Patient (minutes): 32 Provider Statement: I spent 100% of the Face to Face Visit with the patient with greater than 50% spent counseling the patient and coordination of care.
== END 2022-07-17 08:52 | disposition home or self-care (01) ==
LOC: SC 08:51
PROVIDERS: ATTEND Nurse Practitioner Family
DX: G47.10 Hypersomnia, unspecified (principal); R53.83 Other fatigue; G47.8 Other sleep disorders; R51.9 Headache, unspecified; R06.83 Snoring; F32.A Depression, unspecified; E66.3 Overweight; Z68.29 Body mass index [BMI] 29.0-29.9, adult
CPT/HCPCS: 99203; 99212

== ENCOUNTER 2022-10-17 19:43 | Outpatient (CLI) | payer BC ==
--- NOTE | 2022-10-18 08:34 | XRAY Report ---
PROCEDURE: Hand 2 View LT INDICATIONS: L SHOULDER PAIN TECHNIQUE: 2 views of the hand(s) acquired. COMPARISON: None FINDINGS: Bones: No fractures or dislocations. Mild osteoarthritic changes are noted throughout interphalangea l joints with joint space narrowing. No gross bony erosive changes. No suspicious bony lesions. Soft tissues: No suspicious soft tissue calcifications. IMPRESSION: No left hand fracture or dislocation. Very mild interphalangeal joint osteoarthritis. No gross bony e rosive changes. Reviewed by: Fernando Torrez MD on 10/18/2022 8:32 AM PST Approved by: Fernando Torrez MD on 10/18/2022 8:32 AM PST Station ID: [id number]
--- NOTE | 2022-10-18 08:36 | XRAY Report ---
PROCEDURE: Shoulder 2 View LT INDICATIONS: L SHOULDER PAIN TECHNIQUE: 2 views of the shoulder were acquired. COMPARISON: None. FINDINGS: Bones: No fractures or dislocations. ;;; 24/04/2016. No suspicious bony lesions. Visualized ribs appear intact. Soft tissues: No suspicious soft tissue calcifications. IMPRESSION: Mild acromioclavicular joint osseous arthritis. No fracture or dislocation. No gross sof t tissue abnormalities. Reviewed by: Fernando Torrez MD on 10/18/2022 8:35 AM PST Approved by: Fernando Torrez MD on 10/18/2022 8:35 AM [facility] Station ID: [id number]
== END 2022-10-17 19:44 | disposition home or self-care (01) ==
LOC: DI 19:43
PROVIDERS: ATTEND Internal Medicine
DX: M19.012 Primary osteoarthritis, left shoulder (principal); M19.042 Primary osteoarthritis, left hand

== ENCOUNTER 2024-06-18 21:23 | Outpatient (CLI) | payer BC ==
[2024-06-20 05:09] LABS: PROGESTERONE 1.3 ng/mL (.)
[2024-06-20 09:07] LABS: VITAMIN D 25-HYDROXY 34.8 ng/mL (30.0-100.0)
== END 2024-06-18 21:24 | disposition home or self-care (01) ==
LOC: LAB 21:23
PROVIDERS: ATTEND Registered Nurse
DX: N95.1 Menopausal and female climacteric states (principal); E55.9 Vitamin D deficiency, unspecified; R68.82 Decreased libido
CPT/HCPCS: 36415; 82306; 82670; 83001; 83002; 84144; 84270; 84402; 84403